=== PATIENT | male | born 1955 | race Caucasian/White ===

== ENCOUNTER → 2018-11-28 13:09 | Outpatient (CLI) | payer OTHER, SELFPAY ==
--- NOTE | 2018-11-28 | DI.ECHO.S_ITS ---
[facility]---------+ [facility] +---------+ : : [address] : : : : [id number] : : : : Phone: [phone] +---------+ Echocardiogram Report + + :Name: GEE VIDES Study Date: 11/28/2018 Height: 70 in : :[facility] Exam Location: [facility] Weight: 195 lb : : Gender: Male BSA: 2.1 m2 : :: 1955 Age: 63 yrs BP: 135/90 mmHg: :Reason For Study: AFIB : : Performed By: Donte Arredondo : :Referring: DOREEN WOLF : + + Interpretation Summary The left ventricle is normal in size. The ejection fraction is estimated to be 60-65%. There has been no significant change in LVEF since the previous study. The right ventricle is normal in size and function. This is improved compared to the previous study. There is mild to moderate mitral regurgitation. Compared to the prior echo study, there has been no change in the severity of mitral regurgitation. There is moderate tricuspid regurgitation. Compared to the prior echo exam, there has been no change in TR severity. The right ventricular systolic pressure is estimated to be at least 28 mmHg based on an estimated right atrial pressure of 8 mm Hg. The ascending aorta is mildly enlarged. 3.8 cm in diameter. In August 2015 it was about 3.6 cm. Procedure: A two-dimensional transthoracic echocardiogram with color flow and Doppler was performed. The study quality was technically adequate. Comparison is made with the echocardiogram of 08/27/15. The patient had a heart rate of 76-103 beats per minute. The patient was in atrial fibrillation with heart rates between 76-103 bpm during the exam. Left Ventricle: The left ventricle is normal in size. There is normal left ventricular wall thickness. There is no thrombus. The ejection fraction is estimated to be 60-65%. There has been no significant change since the previous study. There are no focal wall motion abnormalities. E/E' med: 9.4. Right Ventricle: The right ventricle is normal in size and function. This is improved compared to the previous study. Atria: The left atrium is severely dilated. The left atrium has mildly increased in size since the prior echo exam. The right atrium is mildly dilated. The interatrial septum is intact with no evidence for an atrial septal defect. Mitral Valve: There is mild mitral annular calcification. There is mild to moderate mitral regurgitation. Compared to the prior echo study, there has been no change in the severity of mitral regurgitation. Aortic Valve: The aortic valve is trileaflet. The aortic valve opens well. There is no aortic valve stenosis. There is trace aortic regurgitation. Tricuspid Valve: The tricuspid valve is normal. There is moderate tricuspid regurgitation. The right ventricular systolic pressure is estimated to be at least 28 mmHg based on an estimated right atrial pressure of 8 mm Hg. Compared to the prior echo exam, there has been no change in TR severity. Pulmonic Valve: The pulmonic valve is normal in structure and function. There is trace pulmonic regurgitation. Great Vessels: The aortic root is normal size. The ascending aorta is mildly enlarged. The pulmonary artery is normal size. The IVC is dilated (diameter is greater than 2.1 cm) yet it collapses greater than 50% with a sniff. This suggests a right atrial pressure of 8 mm Hg. Pericardium/ Pleura There is no pericardial effusion. There is no pleural effusion. MMode/2D Measurements & Calculations LVIDd: 5.4 cm LVOT diam: 2.1 cm LVIDs: 3.8 cm Ao root diam: 3.6 cm FS: 29.6 % Aortic Jxn: 2.8 cm EPSS: 0.38 cm asc Aorta Diam: 3.8 cm IVSd: 0.96 cm Ao Arch Diam (Prox Trans): 2.8 cm LVPWd: 1.0 cm LV quispe. diameter/BSA (cm/m^2): 2.6 LV sys. diameter/BSA (cm/m^2): 1.9 LA dimension: 4.8 cm RA long axis: 5.8 cm LA A2 area: 30.8 cm2 RA area: 23.6 cm2 LA A4 area: 34.9 cm2 RA vol: 82.0 ml LA length (vol): 6.7 cm RA : 39.7 ml/m2 LA vol: 136.0 ml IVC diam: 2.3 cm LA vol index: 65.9 ml/m2 RVD1 (basal): 4.2 cm RVD2 (mid): 3.9 cm Doppler Measurements & Calculations Ao V2 max: 83.8 cm/sec LVOT Max Marco Antonio: 80.2 cm/sec Ao V2 mean: 66.3 cm/sec LV V1 max P.6 mmHg Ao max P.8 mmHg LV V1 VTI: 14.5 cm Ao mean P.9 mmHg PEPE(I,D): 3.3 cm2 Ao V2 VTI: 15.5 cm PEPE(V,D): 3.4 cm2 sev ratio: 0.93 PEPE indexed to BSA (cm^2/m^2): 1.6 MV E max marco antonio: 78.8 cm/sec TR max marco antonio: 224.6 cm/sec MV A max marco antonio: 1.2 cm/sec TR max P.2 mmHg MV E/A: 63.1 PA V2 max: 71.6 cm/sec Med Peak E' Marco Antonio: 8.4 cm/sec PA V2 mean: 51.2 cm/sec E/E' med: 9.4 PA mean P.1 mmHg Lat Peak E' Marco Antonio: 11.5 cm/sec PA pr(Accel): 51.6 mmHg E/E' lat: 6.9 PA Accel Time: 0.06 sec E/e' average: 8.1 MV dec time: 0.10 sec SV(LVOT): 51.5 ml Reading Physician:CHAYO
== END ==
PROVIDERS: PCP Family Medicine Geriatric Medicine; Visit Provider Internal Medicine Cardiovascular Disease
DX: I08.1 Rheumatic disorders of both mitral and tricuspid valves (principal); I48.2 Chronic atrial fibrillation
CPT/HCPCS: 93306

== ENCOUNTER → 2022-08-05 12:13 | Outpatient (CLI) | payer OTHER, MEDICARE, SELFPAY ==
--- NOTE | 2022-08-05 12:20 | DI.ECHO.S_ITS ---
[facility]---------+ [facility] +---------+ : : [address] : : : : [id number] : : : : Phone: [phone] +---------+ Echocardiogram Report + + :Name: GEE VIDES Study Date: 08/05/2022 Height: 70.5 in: :[facility] ReadingLocation: Weight: 188 lb : : Gender: Male BSA: 2.0 m2 : :: 1955 Age: 67 yrs BP: 137/93 mmHg: :Reason For Study: ATRIAL FIBRILLATION : :Ordering Physician: LUCIANO, : :DOREEN Performed By: Leonila Keyes : :Referring: DOREEN WOLF : + + Interpretation Summary The left ventricle is normal in size. Proximal septal thickening is noted. The ejection fraction is estimated to be 60-65%. There has been no significant change in LVEF since the previous exam. The right ventricle is mildly dilated. Visually RV systolic function appears to be preserved. There is severe biatrial enlargement. Both atria have remained unchanged in size since the prior echo exam. There is mild to moderate mitral regurgitation. Compared to the prior echo study, there has been no change in the severity of mitral regurgitation. There is moderate tricuspid regurgitation. Compared to the prior echo exam, there has been no change in TR severity. The right ventricular systolic pressure is estimated to be at least 30 mmHg based on an estimated right atrial pressure of 8 mm Hg. Mild atherosclerotic plaque(s) in the aortic arch. Procedure: A two-dimensional transthoracic echocardiogram with color flow and Doppler was performed. The study quality was technically adequate. Comparison is made with the echocardiogram of 11/28/2018. The patient was in atrial fibrillation with heart rates between 89-95 bpm during the exam. Left Ventricle: The left ventricle is normal in size. Proximal septal thickening is noted. There is no thrombus. The ejection fraction is estimated to be 60-65%. There has been no significant change since the previous exam. There are no focal wall motion abnormalities. Diastolic function could not be accurately assessed due to atrial fibrillation. E/E' med: 9.0. Right Ventricle: The right ventricle is mildly dilated. Visually RV systolic function appears to be preserved. Atria: The left atrium is severely dilated. There is severe biatrial enlargement. Both atria have remained unchanged in size since the prior echo exam. There is no Doppler evidence for an interatrial shunt. Mitral Valve: There is mild mitral annular calcification. The mitral valve leaflets are slightly calcified. The mitral valve chordae are thickened and/or calcified. There is mild to moderate mitral regurgitation. Compared to the prior echo study, there has been no change in the severity of mitral regurgitation. Aortic Valve: The aortic valve is trileaflet. The aortic valve opens well. The aortic valve is slightly calcified. There is no aortic valve stenosis. There is trace aortic regurgitation. Tricuspid Valve: The tricuspid annulus is dilated. There is moderate tricuspid regurgitation. The right ventricular systolic pressure is estimated to be at least 30 mmHg based on an estimated right atrial pressure of 8 mm Hg. Compared to the prior echo exam, there has been no change in TR severity. Pulmonic Valve: The pulmonic valve leaflets are thin and pliable; valve motion is normal. There is mild pulmonic regurgitation. Great Vessels: The aortic root is normal size. The ascending aorta could not be visualized. Mild atherosclerotic plaque(s) in the aortic arch. The IVC is dilated (diameter is greater than 2.1 cm) yet it collapses greater than 50% with a sniff. This suggests a right atrial pressure of 8 mm Hg. Pericardium/ Pleura There is no pericardial effusion. There is no pleural effusion. MMode/2D Measurements & Calculations LVIDd: 5.3 cm LVOT diam: 2.1 cm LVIDs: 3.2 cm Ao root diam: 3.5 cm FS: 38.9 % Ao Arch Diam (Prox Trans): 3.1 cm IVSd: 0.85 cm LVPWd: 0.75 cm LV quispe. diameter/BSA (cm/m^2): 2.6 LV sys. diameter/BSA (cm/m^2): 1.6 LA A2 area: 30.6 cm2 RA long axis: 6.2 cm LA A4 area: 32.0 cm2 RA area: 26.0 cm2 LA length (vol): 7.1 cm RA vol: 92.4 ml LA vol: 117.8 ml RA : 45.2 ml/m2 LA vol index: 57.7 ml/m2 IVC diam: 2.5 cm RVD1 (basal): 4.2 cm RVD2 (mid): 3.6 cm TAPSE: 1.5 cm Doppler Measurements & Calculations Ao V2 max: 92.3 cm/sec LVOT Max Marco Antonio: 73.7 cm/sec Ao V2 mean: 64.4 cm/sec LV V1 max P.2 mmHg Ao max P.4 mmHg LV V1 VTI: 13.2 cm Ao mean P.9 mmHg PEPE(I,D): 2.5 cm2 Ao V2 VTI: 18.4 cm PEPE(V,D): 2.8 cm2 sev ratio: 0.72 PEPE indexed to BSA (cm^2/m^2): 1.2 MV E max marco antonio: 73.0 cm/sec TR max marco antonio: 232.9 cm/sec MV A max marco antonio: 11.1 cm/sec TR max P.7 mmHg MV E/A: 6.6 PA V2 max: 97.2 cm/sec Med Peak E' Marco Antonio: 8.1 cm/sec PA V2 mean: 70.0 cm/sec E/E' med: 9.0 PA mean P.1 mmHg Lat Peak E' Marco Antonio: 11.8 cm/sec PA pr(Accel): 36.2 mmHg E/E' lat: 6.2 E/e' average: 7.6 MV dec time: 0.15 sec SV(LVOT): 45.9 ml Reading Physician:01:26 PM
== END ==
PROVIDERS: Referring Provider Internal Medicine Cardiovascular Disease; Visit Provider Internal Medicine Cardiovascular Disease
DX: I70.0 Atherosclerosis of aorta (principal); I08.0 Rheumatic disorders of both mitral and aortic valves; I48.20 Chronic atrial fibrillation, unspecified
CPT/HCPCS: 93306

== ENCOUNTER → 2024-11-02 12:30 | Outpatient (CLI) | payer MEDICARE, OTHER, SELFPAY ==
--- NOTE | 2024-11-02 12:36 | DI.ECHO.S_ITS ---
[facility]---------+ [facility] : : [address] : : [place] : : [id number] : : Phone: [phone] Echocardiogram Report + + :Name: GEE VIDES Study Date: 11/02/2024 Height: 70 in : :[facility] ReadingLocation: Weight: 190 lb : : Gender: Male BSA: 2.0 m2 : :: 1955 Age: 69 yrs BP: 129/86 mmHg: :Reason For Study: MITRAL INSUFFICIENCY : :Ordering Physician: LUCIANO, : :DOREEN Performed By: Leonila Keyes : :Referring: DOREEN WOLF : + + Interpretation Summary The patient was in atrial fibrillation with heart rates between 80-97 bpm during the exam. The left ventricle is normal in size. The left ventricular ejection fraction is normal. The ejection fraction is estimated to be 55-60%. No significant change in LVEF from the previous study. The right ventricle is normal size. The right ventricular systolic function is normal. There is mild to moderate mitral regurgitation. Compared to the prior echo study, there has been no change in the severity of mitral regurgitation. There is moderate tricuspid regurgitation. Compared to the prior echo exam, there has been no change in TR severity. The right ventricular systolic pressure is estimated to be at least 32 mmHg based on an estimated right atrial pressure of 8 mm Hg. Previously 30 mmHg. Mild atherosclerotic plaque(s) in the aortic arch. Seen on previous echo as well. Procedure: A two-dimensional transthoracic echocardiogram with color flow and Doppler was performed. The study quality was technically adequate. Comparison is made with the echocardiogram of 08/05/2022. The patient was in atrial fibrillation with heart rates between 80-97 bpm during the exam. Left Ventricle: Proximal septal thickening is noted. The left ventricle is normal in size. There is no thrombus. The ejection fraction is estimated to be 55-60%. The left ventricular ejection fraction is normal. There are no focal wall motion abnormalities. Diastolic function could not be accurately assessed due to atrial fibrillation. Right Ventricle: The right ventricle is normal size. The right ventricular systolic function is normal. Atria: The left atrium is severely dilated. Both atria have remained unchanged in size since the prior echo exam. The right atrium is severely dilated. There is no Doppler evidence for an interatrial shunt. Mitral Valve: The mitral valve leaflets appear mildly thickened, but open well. There is mild mitral annular calcification. The mitral valve chordae are thickened and/or calcified. There is mild to moderate mitral regurgitation. Compared to the prior echo study, there has been no change in the severity of mitral regurgitation. Aortic Valve: The aortic valve is trileaflet. The aortic valve opens well. There is no aortic valve stenosis. There is trace aortic regurgitation. Tricuspid Valve: The tricuspid annulus is dilated. There is moderate tricuspid regurgitation. The right ventricular systolic pressure is estimated to be at least 32 mmHg based on an estimated right atrial pressure of 8 mm Hg. Compared to the prior echo exam, there has been no change in TR severity. Pulmonic Valve: The pulmonic valve leaflets are thin and pliable; valve motion is normal. There is mild pulmonic regurgitation. Great Vessels: The aortic root is normal size. The dimensions of the ascending aorta are normal. Mild atherosclerotic plaque(s) in the aortic arch. There has been no significant change since the previous study. The IVC is dilated (diameter is greater than 2.1 cm) yet it collapses greater than 50% with a sniff. This suggests a right atrial pressure of 8 mm Hg. Pericardium/ Pleura There is no pericardial effusion. There is no pleural effusion. MMode/2D Measurements & Calculations LVIDd: 5.4 cm LVOT diam: 2.2 cm LVIDs: 4.0 cm Ao root diam: 3.6 cm FS: 26.4 % asc Aorta Diam: 3.7 cm EPSS: 0.57 cm Ao Arch Diam (Prox Trans): 2.9 cm IVSd: 0.93 cm LVPWd: 1.2 cm LV quispe. diameter/BSA (cm/m^2): 2.7 LV sys. diameter/BSA (cm/m^2): 2.0 LA A2 area: 31.6 cm2 RA long axis: 6.0 cm LA A4 area: 30.0 cm2 RA area: 24.7 cm2 LA length (vol): 6.6 cm RA vol: 86.9 ml LA vol: 121.9 ml RA : 42.5 ml/m2 LA vol index: 59.7 ml/m2 IVC diam: 2.2 cm RVD1 (basal): 3.9 cm TAPSE: 1.6 cm Doppler Measurements & Calculations Ao V2 max: 93.4 cm/sec LVOT Max Marco Antonio: 77.9 cm/sec Ao V2 mean: 64.4 cm/sec LV V1 max P.4 mmHg Ao max P.2 mmHg LV V1 VTI: 14.7 cm Ao mean P.1 mmHg PEPE(I,D): 3.3 cm2 Ao V2 VTI: 16.7 cm PEPE(V,D): 3.1 cm2 sev ratio: 0.88 PEPE indexed to BSA (cm^2/m^2): 1.6 MV E max marco antonio: 87.1 cm/sec TR max marco antonio: 251.2 cm/sec MV A max marco antonio: 0.88 cm/sec TR max P.2 mmHg MV E/A: 98.4 PA V2 max: 83.9 cm/sec Med Peak E' Marco Antonio: 11.9 cm/sec PA V2 mean: 57.3 cm/sec E/E' med: 7.3 PA mean P.4 mmHg Lat Peak E' Marco Antonio: 15.3 cm/sec PA pr(Accel): 23.8 mmHg E/E' lat: 5.7 E/e' average: 6.5 MV dec time: 0.18 sec SV(LVOT): 54.5 ml Reading Physician:05:38 PM
== END ==
LOC: ECHO 12:35
PROVIDERS: PCP Physician Assistant; Referring Provider Internal Medicine Cardiovascular Disease; Visit Provider Internal Medicine Cardiovascular Disease
DX: I08.1 Rheumatic disorders of both mitral and tricuspid valves (principal); I70.0 Atherosclerosis of aorta
CPT/HCPCS: 93306